=== PATIENT | female | born 1955 | race Caucasian/White ===

== ENCOUNTER 2017-04-03 04:35 | Inpatient (IN) ==
[2017-03-27 11:13] LABS: MANUAL DIFF NEEDED? NO
[2017-03-27 11:16] LABS: BILIRUBIN URINE NEGATIVE (NEGATIVE); BLOOD URINE NEGATIVE (NEGATIVE); COLOR YELLOW; GLUCOSE URINE NEGATIVE (NEGATIVE); LEUKOCYTES URINE NEGATIVE (NEGATIVE); NITRITE URINE NEGATIVE (NEGATIVE); PH URINE 5.5; PROTEIN URINE NEGATIVE (NEGATIVE); SP GRAVITY URINE 1.024; TURBIDITY URINE CLEAR (CLEAR); URINE MICRO REVIEW NEEDED? NO; URINE SOURCE CLEAN CATCH; UROBILINOGEN URINE NORMAL (NORMAL)
[2017-03-27 11:16] LABS: BASO% 0.6 % (0.0-0.8); EOS# 0.05 X1000 (0.0-0.7); EOS% 0.7 % (0.0-10.0); HEMATOCRIT 41.1 % (37.0-47.0); HEMOGLOBIN 13.6 g/dL (12.0-16.0); LYMPH# 1.97 X1000 (1.2-3.4); LYMPH% 29.1 % (20.5-51.1); MCH 30.3 PG (27-31); MCHC 33.1 g/dL (33-37); MCV 91.5 FL (81-99); MONO# 0.47 X1000 (0.11-0.59); MONO% 6.9 % (1.7-9.3); MPV 9.2 FL (7.4-10.4); NEUT% 62.7 % (42.2-75.2); PLT 324 X1000 (130-400); RBC 4.49 XMIL (4.2-5.4)
--- NOTE | 2017-03-27 11:16 | EKG Report ---
Test Performed on : 03/27/2017 10:27:06 AM Test Reason : PAT Blood Pressure : / mmHG Vent. Rate : 061 BPM Atrial Rate : 061 BPM P-R Int : 184 ms QRS Dur : 068 ms QT Int : 400 ms P-R-T Axes : 016 002 044 degrees QTc Int : 402 ms Normal sinus rhythm. Normal ECG No previous ECGs available Confirmed by Anand Vaughn MD ([id number]) on 03/27/2017 2:56:39 PM
[2017-03-27 11:17] LABS: UR EPITHELIAL CELLS <10 /HPF (<10); URINE BACTERIA NEGATIVE /HPF; URINE RBC <10 /HPF (<10); URINE WBC <10 /HPF (<10)
[2017-03-27 11:28] LABS: INR 0.94; PROTIME 9.8 Seconds (9.2-11.7)
[2017-03-27 11:51] LABS: AGAP 16; BUN 11 mg/dL (8-22); CALCIUM 9.8 mg/dL (8.8-10.2); CHLORIDE 101 mmol/L (98-107); COSMO 280; POTASSIUM 5.5 mmol/L (3.5-5.1); SODIUM 141 mmol/L (136-145); TCO2 24 mmol/L (25-35)
[2017-04-03] MEDS ORDERED: ZOFRAN PO PRN (06:47)
[2017-04-03] MEDS ORDERED: COLACE ONE (07:01)
[2017-04-03] MEDS ORDERED: PEPCID ONE (07:01)
[2017-04-03] MEDS ORDERED: CELEBREX ONE (07:01)
[2017-04-03] MEDS ORDERED: LYRICA ONE ×2 (07:01→07:39)
[2017-04-03] MEDS ORDERED: REGLAN ONE (07:01)
[2017-04-03] MEDS ORDERED: LR 1,000 ML ONE (07:02)
[2017-04-03] MEDS ORDERED: KEFZOL 1 GM/D5W 1 GM/50 ML IVPB ONE (07:02)
[2017-04-03] MEDS ORDERED: QUELICIN (DOSE) ONE (07:37)
[2017-04-03] MEDS ORDERED: XYLOCAINE-MPF 2% ONE (07:37)
[2017-04-03] MEDS ORDERED: DIPRIVAN 1% ONE (07:38)
[2017-04-03] MEDS ORDERED: ROBINUL ONE (07:39)
[2017-04-03] MEDS ORDERED: DURAMORPH ONE (08:19)
[2017-04-03] MEDS ORDERED: MARCAINE 0.25% PF/EPI 1:200,000 ONE (08:20)
[2017-04-03] MEDS ORDERED: VANCOMYCIN ONE (08:20)
[2017-04-03] MEDS ORDERED: SODIUM CHLORIDE 0.9% ONE (08:20)
[2017-04-03] MEDS ORDERED: TORADOL ONE (08:20)
[2017-04-03] MEDS ORDERED: NEOSPORIN G.U. IRRIGANT ONE (08:21)
[2017-04-03] MEDS ORDERED: EXPAREL 1.3% ONE (08:21)
[2017-04-03] MEDS ORDERED: AMIDATE ONE (08:26)
[2017-04-03] MEDS ORDERED: LTA KIT ONE (08:31)
[2017-04-03] MEDS ORDERED: CYKLOKAPRON 1,000 MG/NS 1,000 MG/100 ML IVPB ONE (08:32)
[2017-04-03] MEDS ORDERED: NAROPIN 0.5% ONE (08:45)
[2017-04-03] MEDS ORDERED: VERSED ONE (08:46)
[2017-04-03] MEDS ORDERED: EPHEDRINE ONE (09:39)
[2017-04-03] MEDS ORDERED: SODIUM CHLORIDE 0.9% 10 ML ONE ×2 (09:39→10:06)
[2017-04-03] MEDS ORDERED: NEO-SYNEPHRINE ONE (10:06)
[2017-04-03] MEDS ORDERED: DECADRON ONE ×2 (10:30)
[2017-04-03] MEDS ORDERED: OFIRMEV 1000 MG/ISOTONIC SOLN 1,000 MG/100 ML BOTTLE ONE (10:31)
[2017-04-03] MEDS ORDERED: ZOFRAN ONE (10:31)
[2017-04-03] MEDS ORDERED: NS 1,000 ML ONE (11:13)
[2017-04-03] MEDS: DILAUDID ONE ×7 (11:18→11:58)
[2017-04-03] MEDS ORDERED: DILAUDID ONE (12:03)
[2017-04-03] MEDS ORDERED: CARDIZEM IV ONE (12:15)
[2017-04-03] MEDS ORDERED: CARDIZEM IV PRN (12:40)
--- NOTE | 2017-04-03 13:06 | Diag Imaging Result Doc PS360 ---
EXAM: SHOULDER 1 VIEW LEFT HISTORY: post op total shoulder TECHNIQUE: Portable single view COMPARISON: None. FINDINGS: There has been recent orthopedic replacement of the left shoulder. There is good positioning in the humeral shaft. No fracture. No separation at the acromioclavicular joint. IMPRESSION: Recently replaced left shoulder. Electronically signed by Jackson Mccormack 04/03/2017 1:04 PM
[2017-04-03] MEDS ORDERED: TYLENOL PO SCH (13:15)
[2017-04-03] MEDS ORDERED: MILK OF MAGNESIA PO PRN (13:15)
[2017-04-03] MEDS: DILAUDID PO PRN ×2 (13:58→19:36)
[2017-04-03] MEDS ORDERED: XANAX PO SCH (14:00)
[2017-04-03] MEDS: NS 1,000 ML IV SCH (14:02)
[2017-04-03] MEDS ORDERED: CYKLOKAPRON 1,000 MG in NS 100 ML IV ONE (15:00)
[2017-04-03 18:00] LABS: URINE CULTURE NEEDED? NO; URINE MICRO REVIEW NEEDED? NO; URINE SOURCE CATH
[2017-04-03 18:02] LABS: BILIRUBIN URINE NEGATIVE (NEGATIVE); BLOOD URINE NEGATIVE (NEGATIVE); COLOR STRAW; GLUCOSE URINE NEGATIVE (NEGATIVE); LEUKOCYTES URINE NEGATIVE (NEGATIVE); NITRITE URINE NEGATIVE (NEGATIVE); PH URINE 7.5; PROTEIN URINE NEGATIVE (NEGATIVE); TURBIDITY URINE CLEAR (CLEAR); UROBILINOGEN URINE NORMAL (NORMAL)
[2017-04-03] MEDS: KEFZOL 1 GM/D5W 1 GM/50 ML IVPB IV SCH (18:02)
[2017-04-03 18:03] LABS: UR EPITHELIAL CELLS <10 /HPF (<10); URINE BACTERIA NEGATIVE /HPF; URINE RBC <10 /HPF (<10); URINE WBC <10 /HPF (<10)
[2017-04-03] MEDS: DILAUDID IV PRN ×3 (18:11→23:26)
[2017-04-03] MEDS: LEXAPRO PO SCH (18:54)
[2017-04-03] MEDS: COLACE PO SCH (21:35)
[2017-04-03] MEDS: OXYCONTIN PO SCH (21:58)
[2017-04-03] MEDS: PERIDEX MT SCH (21:58)
[2017-04-03] MEDS: XANAX PO SCH (21:58)
[2017-04-04] MEDS: DILAUDID PO PRN ×6 (01:18→18:53)
[2017-04-04] MEDS: KEFZOL 1 GM/D5W 1 GM/50 ML IVPB IV SCH (01:19)
[2017-04-04] MEDS: NS 1,000 ML IV SCH ×2 (01:19→17:33)
[2017-04-04] MEDS: DILAUDID IV PRN ×8 (03:11→22:30)
[2017-04-04] MEDS: XANAX PO SCH ×3 (05:19→20:30)
[2017-04-04 06:24] LABS: HEMATOCRIT 32.2 % (37.0-47.0); HEMOGLOBIN 10.7 g/dL (12.0-16.0)
[2017-04-04] MEDS: PATIENT'S OWN MED PO SCH (06:54)
[2017-04-04 07:05] LABS: AGAP 9; BUN 6 mg/dL (8-22); CALCIUM 8.5 mg/dL (8.8-10.2); CHLORIDE 105 mmol/L (98-107); COSMO 275; POTASSIUM 3.9 mmol/L (3.5-5.1); SODIUM 139 mmol/L (136-145); TCO2 25 mmol/L (25-35)
--- NOTE | 2017-04-04 07:42 | PROGRESS NOTE ---
DATE: 04/04/2017 SUBJECTIVE: The patient is a pleasant, 61-year-old female, who is 1 day status post left reverse shoulder arthroplasty. The patient has had significant discomfort through the night and has discomfort this morning as well. She is on Dilaudid. OBJECTIVE: On physical exam of the patient's left upper extremity, her dressing is intact. She is grossly neurovascularly intact. She has expected discomfort with gentle movement. Laboratory is pending. IMPRESSION: Postop day #1 status post left reverse shoulder arthroplasty. PLAN: At this point, I discussed treatment options with the patient and family. At this time, we will change her dressing and Hep-Lock her IV. Will mobilize with physical therapy. cc: Oneil Edgar MD
[2017-04-04] MEDS: OXYCONTIN PO SCH ×2 (09:53→20:30)
[2017-04-04] MEDS: PRILOSEC PO SCH (09:53)
[2017-04-04] MEDS: COLACE PO SCH ×2 (09:53→20:30)
[2017-04-04] MEDS: LEXAPRO PO SCH (09:54)
[2017-04-04] MEDS: PERIDEX MT SCH ×2 (09:54→20:29)
--- NOTE | 2017-04-04 11:44 | OPERATIVE NOTE ---
PROCEDURE DATE : 04/03/2017 PREOPERATIVE DIAGNOSIS: Left posttraumatic glenohumeral arthritis with rotator cuff tear. POSTOPERATIVE DIAGNOSIS: Left posttraumatic glenohumeral arthritis with rotator cuff tear. PROCEDURE: Left reverse total shoulder arthroplasty with DePuy Delta Xtend size 12 press-fit stem, a 42 +3 humeral cup, a 42 eccentric glenosphere, and a standard Metaglene. SURGEON: Oneil Edgar MD. EMAIL ADMINISTRATOR: Roma Ramos. SECOND CRIMINAL JUDGE: BRANNON Mcghee. ANESTHESIA: General. IV FLUIDS: 1000 mL lactated Ringer's. ESTIMATED BLOOD LOSS: 100 mL. COMPLICATIONS: None. INDICATION: The patient is a pleasant 61-year-old female who is status post injury to the left shoulder last year and required open reduction internal fixation of left proximal humeral fracture in March per Dr. Regan with subsequent removal of hardware on 05/09/2016. The patient has continued with pain, discomfort, and weakness. MRI revealed a large full thickness rotator cuff tear and some comminuted fracture of the proximal humerus with degenerative changes. Recommendation to proceed with left reverse total shoulder was offered. The patient was noted preoperatively to have atrophy in the lateral aspect of the deltoid at its insertion. Risks and benefits of surgery were explained, including the risks of anesthesia, , bleeding, infection, failure to relieve pain, postoperative stiffness, nerve injury, blood clots, and other imponderables. All questions answered and the patient and family wish to proceed with the surgery. DETAILS OF THE OPERATION: The patient was taken to the operating room and placed supine on the operating table. Once adequate anesthesia was obtained, she was placed in a semi-Mitchell beach- chair position. The left shoulder was subsequently prepped and draped in the usual sterile fashion. Sterile fashion. A standard deltopectoral incision was made with skin knife. Hemostasis was obtained using electrocautery. The deltopectoral interval was then developed. Retractors were then placed. After elevation of the clavipectoral fascia and conjoint tendon, Pastor retractor was placed deep to this. Approximately 1 cm medial to the subscapularis tendon insertion, the subscapularis was released using electrocautery. A stay suture was placed. The humeral head was then dislocated anteriorly. A starting reamer was then passed into the intramedullary canal. A size 12 mm reaming. The intramedullary guide was then placed and the proximal humeral cutting block was pinned in position. The humeral head was then resected. A protective disk was then placed. Anterior osteophyte was removed with rongeur. Circumferential dissection was performed to the glenoid. A guide was then placed and a guidepin was placed in the glenoid. Reaming was then conducted. The central hole was then dilated. The wound was copiously irrigated with antibiotic pulsatile lavage. After this had been performed, a standard metaglene was then packed in position. Two locking screws were placed and 1 nonlocking screw and did have stable fixation. The wound was copiously irrigated once again. This was followed by a 42 eccentric glenosphere with eccentricity placed inferiorly. Attention then turned to the proximal humerus where the intramedullary guide was placed in position, and the proximal humerus was reamed. Copious irrigation was performed with antibiotic pulsatile lavage. A size 12 cement stem was then impacted in position and had good fit. Trial cup size was placed, 42 + 3, and had good range of motion and good stability. The trial cup was then removed. The wound was copiously irrigated once again. The 42 +3 humeral cup was then placed. The shoulder was reduced, carried through range of motion, and had good range of motion and stability. Irrigation was performed once again. A #2 FiberWire was used to repair the subscapularis tendon. The wound was copiously irrigated once again. Then 2-0 Vicryl was then used to repair the subcutaneous tissue, followed by running 2-0 Prolene. Benzoin and Steri-Strips were applied. Adaptic, sterile 4 x 4, ABD pad, and tape were applied to the left shoulder, followed by a shoulder immobilizer. All counts were correct. The patient tolerated the procedure well. She was transferred to the recovery room in stable condition. cc: Oneil Edgar MD MTDD
[2017-04-04] MEDS: BENADRYL PO PRN (22:45)
[2017-04-05] MEDS: PATIENT'S OWN MED PO SCH (01:33)
[2017-04-05] MEDS: DILAUDID IV PRN (03:27)
[2017-04-05] MEDS: BENADRYL PO PRN (03:28)
[2017-04-05] MEDS: DILAUDID PO PRN (05:53)
[2017-04-05] MEDS: XANAX PO SCH (05:54)
[2017-04-05] MEDS: PRILOSEC PO SCH ×2 (05:59→09:57)
[2017-04-05 06:51] LABS: HEMATOCRIT 35.5 % (37.0-47.0); HEMOGLOBIN 11.6 g/dL (12.0-16.0)
--- NOTE | 2017-04-05 07:46 | PROGRESS NOTE ---
DATE: 04/05/2017 SUBJECTIVE: The patient is a pleasant 61-year-old female, 2 days status post left reverse shoulder arthroplasty. The patient is still continuing with pain and discomfort ; however, is somewhat better today. OBJECTIVE: On physical examination of her left shoulder, the wound looks good. There are no signs or symptoms of infection. She is grossly neurovascularly intact. Hemoglobin and hematocrit are pending. IMPRESSION: Postoperative day #2, status post left total reverse shoulder arthroplasty. PLAN: At this point, we will plan on discharging the patient home. She will receive home physical therapy. She will follow up on 04/16/2017. cc: Oneil Edgar MD MTDD
[2017-04-05 08:37] VITALS: BP 133/74
[2017-04-05] MEDS: OXYCONTIN PO SCH (09:57)
[2017-04-05] MEDS: PERIDEX MT SCH (09:57)
[2017-04-05] MEDS: LEXAPRO PO SCH (09:57)
[2017-04-05] MEDS: COLACE PO SCH (09:57)
== END 2017-04-05 10:04 | disposition home health service (06) ==
LOC: SURHOLD 04:35 → 4N 12:59
PROVIDERS: ADMIT Orthopaedic Surgery Adult Reconstructive Orthopaedic Surgery; ATTEND Orthopaedic Surgery Adult Reconstructive Orthopaedic Surgery